=== PATIENT | female | born 1980 | race Caucasian/White ===

== ENCOUNTER → 2017-08-14 | Outpatient (CLI) | payer BC ==
[2017-08-14 12:24] LABS: HEMATOCRIT 38.6 % (36.0-47.0); HEMOGLOBIN 13.3 g/dL (12.0-15.5); HGB HCT DIFFERENCE 1.3; MEAN CORPUSCULAR HEMOGLOBIN 30.5 pg (27.0-33.4); MEAN CORPUSCULAR HGB CONC 34.5 g/dL (32.0-36.0); MEAN CORPUSCULAR VOLUME 88 fl (80-97); RED BLOOD COUNT 4.37 10^6/uL (3.72-5.28); WHITE BLOOD COUNT 6.5 10^3/uL (4.0-10.5)
[2017-08-14 12:47] LABS: ALANINE AMINOTRANSFERASE 35 U/L (9-52); ALBUMIN 4.3 g/dL (3.5-5.0); ALKALINE PHOSPHATASE 100 U/L (38-126); ANION GAP 13 (5-19); ASPARTATE AMINO TRANSFERASE 17 U/L (14-36); BILIRUBIN,DIRECT 0.2 mg/dL (0.0-0.4); BILIRUBIN,TOTAL 0.4 mg/dL (0.2-1.3); BLOOD UREA NITROGEN 10 mg/dL (7-20); CALCIUM 9.2 mg/dL (8.4-10.2); CARBON DIOXIDE 25 mmol/L (22-30); CHLORIDE 105 mmol/L (98-107); GLUCOSE 79 mg/dL (75-110); POTASSIUM 4.4 mmol/L (3.6-5.0); SODIUM 143.4 mmol/L (137-145); TOTAL PROTEIN 7.2 g/dL (6.3-8.2)
[2017-08-14 13:27] LABS: ADD HIVPANEL? NO; HIV (1 AND 2) ANTIBODY NEGATIVE (NEGATIVE)
[2017-08-16 13:49] LABS: PTH INTACT 32 pg/mL (15-65)
[2017-08-16 19:50] LABS: CHLAM PCR NOT DETECTED (NOT DETECT)
[2017-08-21 15:42] LABS: PTH RELATED PEPTIDE <1.1 pmol/L (.)
== END ==
LOC: LAB 12:03
PROVIDERS: ATTEND Family Medicine
DX: A64 Unspecified sexually transmitted disease (principal); B37.9 Candidiasis, unspecified; K62.5 Hemorrhage of anus and rectum; R23.8 Other skin changes
CPT/HCPCS: 36415; 80053; 80074; 82397; 83970; 85027; 86592; 86701; 87086; 87491; 87591

== ENCOUNTER → 2018-02-08 | Outpatient (CLI) | payer BC, OTHER ==
[2018-02-08 19:17] LABS: BACTERIA (WET MOUNT) 4+ BACTERIA SEEN; T.VAGINALIS (WET MOUNT) NO TRICHOMONAS SEEN; WBCS (WET MOUNT) 2+ WBCS SEEN; YEAST (WET MOUNT) YEAST SEEN
[2018-02-08 19:18] LABS: EPITHELIALS (WET MOUNT) 4+ EPITHELIALS SEEN
[2018-02-08 20:50] LABS: CHLAM PCR NOT DETECTED (NOT DETECT); GON PCR NOT DETECTED (NOT DETECT)
== END ==
LOC: LAB 19:06
PROVIDERS: ATTEND Nurse Practitioner Family
DX: N89.8 Other specified noninflammatory disorders of vagina (principal); R30.0 Dysuria
CPT/HCPCS: 87086; 87088; 87210; 87491; 87591

== ENCOUNTER → 2019-08-16 | Outpatient (CLI) | payer OTHER ==
[2019-08-16 18:22] LABS: A TYPE INFLUENZA AG NEGATIVE (NEGATIVE); B INFLUENZA AG NEGATIVE (NEGATIVE)
== END ==
LOC: LAB 17:30
PROVIDERS: ATTEND Nurse Practitioner Family
DX: R68.89 Other general symptoms and signs (principal)
CPT/HCPCS: 87804